=== PATIENT | female | born 1980 | race Caucasian/White ===

== ENCOUNTER 2017-03-17 03:33 | Inpatient (IN) | payer OTHER ==
[~2017-03-17] VITALS: Ht 165 cm; Wt 93.9 kg
[~2017-03-17 03:33] MED LIST: IBUP-1547 PO; NIFE10 PO; PREN1TAB80 PO
[2017-03-17] MEDS ORDERED: RINGERS SOLUTION,LACTATED 1,000 ML IV ONE (03:44)
[2017-03-17] MEDS ORDERED: CITRIC ACID/SODIUM CITRATE 30 ML SOLUTION UDCUP PO ONE (03:45)
[2017-03-17] MEDS ORDERED: METOCLOPRAMIDE HCL 5 MG/ML 2 ML VIAL IVP ONE (03:45)
[2017-03-17 04:36] LABS: BASOPHILS # (AUTO) 0.03 K/uL (0.00-0.20); BASOPHILS % (AUTO) 0.4 % (0.0-2.0); EOSINOPHILS # (AUTO) 0.04 K/uL (0.00-0.70); EOSINOPHILS % (AUTO) 0.57 % (1.0-6.0); HEMATOCRIT 38.7 % (36-46); HEMOGLOBIN 13.1 g/dL (12.0-16.0); LYMPHOCYTES # (AUTO) 1.6 K/uL (1.0-4.8); LYMPHOCYTES % (AUTO) 20.5 % (22.0-44.0); MEAN CORPUSCULAR HEMOGLOBIN 31.7 pg (26.0-34.0); MEAN CORPUSCULAR HGB CONC 33.9 G/dL (31.0-37.0); MEAN CORPUSCULAR VOLUME 94 fL (80-100); MONOCYTES # (AUTO) 0.5 K/uL (0.1-1.0); MONOCYTES % (AUTO) 5.9 % (2.0-9.0); NEUTROPHILS # (AUTO) 5.6 K/uL (1.8-7.7); NEUTROPHILS % (AUTO) 72.7 % (40.0-70.0); RED BLOOD CELL COUNT(AUTO) 4.14 MIL/uL (4.00-5.20); RED CELL DISTRIBUTION WIDTH 13.7 % (11.5-14.5); WHITE BLOOD COUNT (AUTO) 7.7 K/uL (4.5-11.0)
[2017-03-17] MEDS ORDERED: BETAMETHASONE SOLUSPAN 6 MG/ML 5 ML VIAL IM SCH ×2 (05:05→17:30)
[2017-03-17] MEDS: AMPICILLIN SODIUM 2 GM/NS 100 ML IV SCH ×4 (05:24→23:57)
[2017-03-17] MEDS ORDERED: AZITHROMYCIN 250 MG TABLET PO ONE (05:30)
[2017-03-17] MEDS: RINGERS SOLUTION,LACTATED 1,000 ML IV SCH ×4 (06:10→18:11)
[2017-03-17] MEDS ORDERED: NIFEdipine 10 MG CAPSULE PO ONE (06:35)
[2017-03-17 07:24] LABS: ANION GAP 12 mmol/L (8-16); CALCIUM, TOTAL 8.5 mg/dL (8.8-10.5); CARBON DIOXIDE 21 mmol/L (22-29); CHLORIDE 105 mmol/L (98-107); CREATININE 0.69 mg/dL (0.60-1.30); GLOMERULAR FILTR. RATE CALC > 60 mL/min (>60); POTASSIUM 3.7 mmol/L (3.5-5.1); SODIUM SERUM 138 mmol/L (136-145); UREA NITROGEN, BLOOD 8 mg/dL (7-18)
[2017-03-17 07:31] LABS: ALANINE AMINOTRANSFERASE 19 U/L (12-78); ALBUMIN 2.3 g/dL (3.4-5.0); ASPARTATE AMINOTRANSFERASE 24 U/L (15-37); BILIRUBIN,TOTAL 0.2 mg/dL (0.1-1.0); TOTAL PROTEIN, SERUM 6.2 g/dL (6.4-8.2)
[2017-03-17] MEDS ORDERED: NIFEdipine 10 MG CAPSULE PO SCH (13:30)
[2017-03-17] MEDS ORDERED: ASPI81TA2 PO (14:36)
[2017-03-17] MEDS: NIFEdipine 10 MG CAPSULE PO ONE ×2 (18:11→19:30)
[2017-03-17] MEDS ORDERED: NIFEdipine 10 MG CAPSULE PO PRN (20:00)
[2017-03-17 20:45] VITALS: BP 104/56
[2017-03-18] MEDS: RINGERS SOLUTION,LACTATED 1,000 ML IV SCH (00:02)
[2017-03-18] MEDS ORDERED: CITRIC ACID/SODIUM CITRATE 30 ML SOLUTION UDCUP PO ONE (05:00)
[2017-03-18] MEDS ORDERED: METOCLOPRAMIDE HCL 5 MG/ML 2 ML VIAL IVP ONE (05:00)
[2017-03-18] MEDS ORDERED: FentaNYL CITRATE-PF 100 MCG/2 ML VIAL ONE (05:49)
[2017-03-18] MEDS ORDERED: CeFAZolin 2 GM/DEXTROSE 50 ML IV ONE (05:49)
[2017-03-18] MEDS ORDERED: MORPHINE SULFATE/PF 0.5 MG/ML 10 ML AMP ONE (05:49)
[2017-03-18] MEDS: AMPICILLIN SODIUM 2 GM/NS 100 ML IV SCH (06:00)
[2017-03-18] MEDS ORDERED: MORPHINE SULFATE 10 MG/ML SYRINGE IVP PRN (07:00)
[2017-03-18] MEDS ORDERED: NALBUPHINE HCL 10 MG/ML VIAL IVP PRN ×3 (07:00)
[2017-03-18] MEDS ORDERED: FentaNYL CITRATE-PF 100 MCG/2 ML VIAL IVP PRN ×4 (07:00)
[2017-03-18] MEDS ORDERED: DiphenhydrAMINE HCL 50 MG/ML VIAL IVP PRN ×2 (07:00)
[2017-03-18] MEDS ORDERED: MEPERIDINE-PF 25 MG/ML SYRINGE IVP PRN (07:00)
[2017-03-18] MEDS ORDERED: NALOXONE HCL 0.4 MG/ML VIAL IVP PRN (07:00)
[2017-03-18] MEDS ORDERED: ONDANSETRON HCL 4 MG/2 ML VIAL IVP PRN ×2 (07:00)
[2017-03-18] MEDS ORDERED: ACETAMINOPHEN/CODEINE 300-30 MG TABLET PO PRN ×2 (07:45)
[2017-03-18] MEDS ORDERED: LANOLIN 7 GM OINTMENT TP PRN (07:45)
[2017-03-18] MEDS ORDERED: DiphenhydrAMINE HCL 50 MG/ML VIAL ONE (07:58)
[2017-03-18] MEDS ORDERED: ACETAMINOPHEN 1000 MG/ISO-OSM 100 ML IV ONE (07:58)
[2017-03-18] MEDS: OXYGEN THERAPY IH SCH ×2 (08:00→20:00)
[2017-03-18] MEDS ORDERED: OXYGEN THERAPY IH SCH ×3 (08:00)
[2017-03-18] MEDS: ACETAMINOPHEN 1000 MG/ISO-OSM 100 ML IV PRN ×3 (08:01→23:12)
[2017-03-18] MEDS: DEXTROSE 5%-0.45% SODIUM CHL 1,000 ML IV SCH ×5 (08:01→20:41)
[2017-03-18] MEDS ORDERED: DEXTROSE 5%-0.45% SODIUM CHL 1,000 ML IV ONE (08:13)
[2017-03-18] MEDS: MAGNESIUM HYDROXIDE SUSPENSION 30 ML UDCUP PO SCH ×2 (08:57→21:56)
[2017-03-18] MEDS ORDERED: OXYTOCIN 10 UNITS/ML VIAL IM ONE (22:52)
[2017-03-18] MEDS ORDERED: PHENYLEPHRINE HCL 10 MG/ML VIAL IVP ONE (22:52)
[2017-03-19] MEDS: IBUPROFEN 800 MG TABLET PO SCH ×3 (05:54→18:11)
[2017-03-19] MEDS: MAGNESIUM HYDROXIDE SUSPENSION 30 ML UDCUP PO SCH ×2 (07:55→21:34)
[2017-03-19] MEDS: OXYGEN THERAPY IH SCH (20:00)
[2017-03-20] MEDS: IBUPROFEN 800 MG TABLET PO SCH ×3 (05:55→13:52)
[2017-03-20] MEDS: MAGNESIUM HYDROXIDE SUSPENSION 30 ML UDCUP PO SCH (09:27)
== END 2017-03-20 15:30 | disposition home or self-care (01) | DRG 765 ==
LOC: OBSVTOIN 03:33 → 4S 03:33
PROVIDERS: ADMIT Obstetrics & Gynecology; ATTEND Obstetrics & Gynecology
PROC: 10D00Z1 Extraction of Products of Conception, Low, Open Approach (ICD-10-PCS; principal; 2017-03-18)
PROC: 0UL70ZZ Occlusion of Bilateral Fallopian Tubes, Open Approach (ICD-10-PCS; 2017-03-18)
DX: O34.219 Maternal care for unspecified type scar from previous cesarean delivery (principal); O60.14X0 Preterm labor third trimester with preterm delivery third trimester, not applicable or unspecified; O14.94 Unspecified pre-eclampsia, complicating childbirth; O42.913 Preterm premature rupture of membranes, unspecified as to length of time between rupture and onset of labor, third trimester; O09.523 Supervision of elderly multigravida, third trimester; Z3A.35 35 weeks gestation of pregnancy; Z37.0 Single live birth; Z30.2 Encounter for sterilization
CPT/HCPCS: 86850; 86900; 86901; 87081; 88302; J0131; J0290; J0690; J0702; J1200; J2274; J2300; J2370; J2590; J2765; J3010; J7120